=== PATIENT | female | born 1965 | race Caucasian/White ===

== ENCOUNTER → 2021-05-14 10:12 | Outpatient (CLI) | payer OTHER, SELFPAY ==
--- NOTE | 2021-05-14 | DI.MG.S_ITS ---
BILATERAL DIGITAL SCREENING MAMMOGRAM 3D/2D WITH CAD: 05/14/2021 CLINICAL: Routine screening. Family history of breast cancer. 12/07/2010 were available for comparison. There are scattered fibroglandular elements in both breasts. Current study was also evaluated with a Computer Aided Detection (CAD) system. No significant masses, calcifications, or other findings are seen in either breast. IMPRESSION: NEGATIVE There is no mammographic evidence of malignancy. A 1 year screening mammogram is recommended. This exam was interpreted at Station ID: [id number]. NOTE: For mammograms, a report in lay terms will be sent to the patient. Approximately 15% of breast malignancies will not be visualized mammographically. In the management of a palpable breast mass, a negative mammogram must not discourage biopsy of a clinically suspicious lesion. Electronically Signed By: Mukesh Sheppard acr/:05/14/2021 10:55:49 letter sent: Normal Exam ACR BI-RADS Category 1: Negative 3341F
== END ==
PROVIDERS: PCP Internal Medicine; Referring Provider Internal Medicine; Visit Provider Internal Medicine
DX: Z12.31 Encounter for screening mammogram for malignant neoplasm of breast (principal); Z80.3 Family history of malignant neoplasm of breast
CPT/HCPCS: 77063; 77067

== ENCOUNTER → 2021-11-23 16:22 | Outpatient (CLI) | payer OTHER, SELFPAY ==
[2021-11-23 17:31] LABS: COVID19 -Nasal RAPID Negative (Negative)
== END ==
PROVIDERS: PCP Internal Medicine; Visit Provider Obstetrics & Gynecology
DX: Z01.812 Encounter for preprocedural laboratory examination (principal); Z20.822 Contact with and (suspected) exposure to COVID-19
CPT/HCPCS: 87635

== ENCOUNTER 2021-11-26 08:13 | Inpatient (IN) | payer OTHER, SELFPAY ==
[2021-11-20 08:36] VITALS: BMI 28.5
[2021-11-26] VITALS (11 sets, daily range): BP systolic 112–127; BP diastolic 59–84; PULSE 68–85; RESP 14–18; TEMP 36.1–36.9; O2SAT 95–100; BMI 28.5
--- NOTE | 2021-11-26 | PATH_ITS ---
[facility] Accession Number: [id number] . 01 Material submitted: . uterus - UTERUS, UTERINE FIBROID, TUBES AND OVARIES . 02 Diagnosis: Uterus, Uterine Fibroid, Bilateral Fallopian Tubes and Ovaries, Supracervical Hysterectomy with Bilatreal Salpingo-oophorectomy: Multiple benign leiomyomata, up to 10 cm in greatest dimension. Inactive endometrium with no diagnostic abnormality. Left fimbraited fallopian tube with focal endometriosis and simple benign paratubal cysts. Right fimbriated fallopian tube with no diagnostic abnormality. Bilateral ovaries with cystic follicles and involuting corpus luteum cysts. No evidence of malignancy. [facility] 11/30/2021 1221 Local . 02 Electronically signed: . Rajan Rawls MD, PhD, Pathologist NPI- [id number] . 01 Gross description: . Received in formalin and labeled with the patient's name and designated uterus, uterine fibroid, tubes and ovaries is a distorted uterus with attached bilateral adnexa and one detached nodule. The uterus and nodule aggregate to 693 grams. The uterus is markedly distorted, 6.5 cm cornu to cornu, 7.5 cm fundus to cervical stump, and 10.5 cm anterior to posterior. The cervix is absent; the anterior cervical stump is inked blue and the posterior is inked black. The serosa is obrien-taylor and focally disrupted with an 8.5 cm ragged defect on the posterior aspect (likely corresponding with nodule site). The endometrium is pink-red and hemorrhagic, up to 0.2 cm thick. The myometrium is pink-taylor and moderately focally trabeculated, with at least six, 0.6 - 1.3 cm circumscribe intramural nodules with a taylor, whorled nodular cut surface; no discrete hemorrhage, necrosis or calcifications are identified. The myometrium is 2.2 cm thick anteriorly and 6.0 cm thick posteriorly, markedly disrupted and ragged posteriorly underlying the serosal defect. The detached nodule is 10.0 x 8.0 x 7.5 cm, with a ragged outer surface, sectioned to reveal a yellow-taylor, whorled, focally softened cut surface. No discrete areas of hemorrhage or calcifications are identified. The right fallopian tube is 5.5 cm long x 0.6 cm in diameter with a obrien-taylor outer surface and detached opened fimbria. The right ovary is 4.2 x 1.8 x 0.7 cm, with a yellow-taylor, focally hemorrhagic, nodular outer surface, sectioned to reveal a mottled pink-taylor cut surface with multiple mehta-rimmed cysts up to 0.5 cm. No additional lesions are identified. The left fallopian tube is 5.0 cm long x 0.6 cm in diameter with a obrien-taylor outer surface and attached opened fimbria. The left ovary is 4.0 x 2.0 x 0.7 cm, with a yellow-taylor, nodular outer surface, sectioned to reveal a mottled pink-taylor cut surface with multiple mehta-rimmed cysts up to 0.4 cm. No other lesions are identified. Croze Cutter sections are submitted as follows: . A1: Perpendicular sections of cervical resection site. A2: Anterior endomyometrium. A3: Posterior endomyometrium, including defect. A4: Croze Cutter intramural nodules. A5-A7: Croze Cutter detached softened nodule. A8: Croze Cutter right adnexa, including entire bisected fimbria. A9: Croze Cutter left adnexa, including entire bisected fimbria. (GUDELIA:[id number]) /[facility] 11/29/2021 [facility]6 Local . 02 Pathologist provided ICD-10: D25.9, N92.0, N80.2 . 02 CPT . 550170 Specimen Comment: A courtesy copy of this report has been sent to [phone] Specimen Comment: [id number] Performed at: 01 [facility] [address] [address], [place], [place] [id number] MD Yuval Luna MD Phone: [phone] Performed at: [address] [place] [address] [place] [id number] MD Margaux Garza MD Phone: [phone]
[2021-11-26] MEDS: ACETAMINOPHEN 325 MG TABLET 975 MG PO (08:38)
[2021-11-26] MEDS: LACTATED RINGERS 1,000 ML 100 ML IV ×3 (08:38→21:38)
[2021-11-26] MEDS: GABAPENTIN 300 MG CAPSULE PO (08:39)
[2021-11-26] MEDS: SCOPOLAMINE 1 PATCH TOP (08:40)
--- NOTE | 2021-11-26 09:38 | PM.PREOP ---
Pre-operative Note COVID-19 COVID-19 status: Negative Result date/Date tested (Pos, Neg/Pending): 11/23/21 Criteria for continued procedure: Delay expected to result in less-positive ultimate med/surg outcome and Non-surgical alternatives not available or appropriate per current SOC Interval Note History & Physical reviewed/Exam performed by Physician: Yes Changes to H&P: No H&P completed within 30 days and has changed as indicated here:: 11/20/21
[2021-11-26] MEDS: CEFAZOLIN 2 GM/20 ML SYRINGE IV (09:49)
--- NOTE | 2021-11-26 10:06 | SUR.OPER ---
Supine on padded OR bed, head on pillow, arms secured on padded arm boards at <90 degrees abduction, legs uncrossed, safety belt at thigh, tape over blanket over lower legs.
[2021-11-26] MEDS: SODIUM CHLORIDE 0.9% 30 ML, VASOPRESSIN 20 UNIT INJ (10:12)
[2021-11-26] MEDS: OXYCODONE IR 5 MG TABLET PO ×4 (11:41→23:59)
[2021-11-26] MEDS: ONDANSETRON 4 MG/2 ML INJ IV (11:42)
--- NOTE | 2021-11-26 11:53 | SUR.PHASEI ---
Report called to Lesa HOUSTON and opportunity for questions given. Pt updated on plan of care and transfer. Pt going to rm 214.
--- NOTE | 2021-11-26 12:13 | PC.NURSE ---
Postop Note Patient arrived to room 214 from PACU. Alert and oriented x3, sipping water and eating cheese stick on arrival. Denies nausea. Reports 6/10 to abdomen, received oxycodone in PACU and declines need for additional pain medication at this time. SpO2 97% RA. Dressing to lower abdomen C/D/I. Oriented to room and to bed/tv/call light controls. Call light within reach.
[2021-11-26] MEDS: LACTATED RINGERS 1,000 ML 120 ML IV (12:24)
--- NOTE | 2021-11-26 13:25 | P.OP_ITS ---
Operative Date/Time/Diagnoses Date of procedure: 11/26/21 Time of procedure: 11:10 Pre-op diagnosis: Enlarged fibroid uterus Menorrhagia Post-op diagnosis: same Procedure & Clinicians Procedure: Procedures Operation Date: 11/26/21 09:45 Actual Procedure Side Surgeon p Abdominal Supracervical Hysterectomy, removal of tubes, removal of ovaries Loraine Calvillo MD Indications: Menorrhagia Enlarged fibroid uterus Surgeon: Loraine Calvillo [employer] Admin: Leeanna Noe Anesthesia Type: General Operative Notes Findings: 20 week size fibroid uterus Normal tubes and ovaries Closure Type: primary Specimen(s): left tube & ovary, right tube & ovary and uterus Applied: catheter (To continuous drainage) Estimated blood loss (mL): 100 Blood products transfused: none Procedure in detail: The patient was taken to the operating room where she was placed in the dorsal supine position. After adequate general endotracheal anesthesia was achieved, she was prepped and draped in the usual sterile fashion. A time-out was performed. A midline incision was made from 2 cm below the umbilicus to the pubic symphysis and carried through to the underlying layer of fascia. The fascia was nicked in the midline. This incision was extended superiorly and inferiorly. The rectus muscles were in the midline. The peritoneum was grasped between 2 hemostats, and entered sharply with the Metzenbaum scissors. This incision was extended superiorly and inferiorly with good visualization of the bowel and bladder. The Evan self retaining retractor was placed into the incision. The bowel was packed away with moist lap sponges. The uterus was exteriorized. Using a solution of 20 units of Pitressin in 30 cc of saline, 10 cc were injected subserosally. An incision was made with the Bovie and carried down to the capsule of the fibroid. The fibroid was grasped with a single-tooth tenaculum. A large 15 cm fibroid was removed using blunt dissection and the Bovie for cautery. Once the fibroid was removed the 4 tooth tenaculum was used to close the defect in the uterus. The round ligament on the right side was doubly clamped, transected, and suture ligated with 0 Vicryl. This were tagged with hemostat. The infundibulopelvic ligament on the right side was doubly clamped, transected, free tied with 0 Vicryl and then suture ligated with 0 Vicryl. Hemostasis was achieved. The broad ligament was entered anteriorly and the bladder flap created using the Metzenbaum scissors. The uterine arteries on the right side were clamped, transected, and suture ligated with 0 Vicryl. All of this was repeated on the patient's left side. Using the Bovie the uterus was amputated from the cervix. The cervical canal was cauterized with the Bovie. The cervix was closed with 4 simple interrupted sutures with 0 Vicryl. Hemostasis was achieved. The pelvis was copiously irrigated with warm normal saline. There was no bleeding noted. The Evan was removed from the abdomen. The lap sponges were removed from the abdomen. The peritoneum was closed with 2 0 Vicryl in a running fashion. The fascia was reapproximated with 0 Vicryl in a running fashion. Subcutaneous layer was irrigated with warm normal saline. Seven simple interrupted sutures with 3-0 Vicryl were placed to reapproximate subcutaneous layer. The skin was closed with 4 0 Monocryl in a subcuticular fashion. Steri-Strips and an Aquacel dressing were placed. Sponge, lap, and instrument counts were correct x2. The patient tolerated the procedure well, and was taken to PACU in stable condition. Complications: none Post-operative Condition: stable Disposition: PACU Plan for aftercare: To acute care after recovery
[2021-11-26] MEDS: KETOROLAC 30 MG/ML VIAL IV (13:51)
[2021-11-26] MEDS: ESTRADIOL 1 EACH TOP (15:02)
[2021-11-26] MEDS: ACETAMINOPHEN 325 MG TABLET 650 MG PO (15:02)
[2021-11-26] MEDS: MORPHINE 2 MG/ML INJ 1 MG IV ×2 (16:08→18:08)
[2021-11-26] MEDS: DOCUSATE 100 MG CAPSULE 200 MG PO (20:12)
[2021-11-27 03:00] VITALS: BP 119/69; PULSE 70; RESP 17; TEMP 36.8; O2SAT 96
[2021-11-27] MEDS: OXYCODONE IR 5 MG TABLET PO (04:06)
[2021-11-27 04:49] LABS: Add Manual Diff / Slide Review NO; Basophils Absolute Auto 100 /uL (0-100); Basophils Percent Auto 0.6 % (0-2); Eosinophils Absolute Auto 0 /uL (0-450); Eosinophils Percent Auto 0.3 % (2-4); Hematocrit 36.5 % (36-46); Hemoglobin 12.2 g/dL (12.0-16.0); Lymphocytes Absolute Auto 2400 /uL (1100-4500); Mean Corpuscular HGB Conc 33.5 % (30-36); Mean Corpuscular Hemoglobin 31.4 PG (26-34); Mean Corpuscular Volume 93.7 fL (80-100); Monocytes Absolute Auto 1100 /uL (0-900); Monocytes Percent Auto 10.9 % (3-14); Neutrophils Absolute Auto 6700 /uL (1500-7000); Neutrophils Percent Auto 65.2 % (50-75); Platelet Count 243 X10^3/uL (150-400); White Blood Cell Count 10.4 X10^3/uL (4.5-11.0)
[2021-11-27] MEDS: ACETAMINOPHEN 325 MG TABLET 650 MG PO ×3 (05:56→11:18)
[2021-11-27] MEDS: IBUPROFEN 600 MG TABLET PO ×2 (05:57→11:18)
[2021-11-27] MEDS: DOCUSATE 100 MG CAPSULE 200 MG PO (07:51)
[2021-11-27] MEDS: KETOROLAC 30 MG/ML VIAL IV (07:52)
[2021-11-27 08:38] VITALS: BP 110/69; PULSE 65; RESP 18; O2SAT 97
--- NOTE | 2021-11-27 11:14 | PC.NURSE ---
Pt has voided since mitchell was removed. Bladder scan performed with 55cc result.
[2021-11-27 11:40] VITALS: BP 122/71; PULSE 65; RESP 18; O2SAT 97
--- NOTE | 2021-11-27 14:00 | PC.NURSE ---
Pt is dressed and ready for discharge home with Spouse. IV has been removed. [facility] Went over d/c instructions with Pt and Spouse-discussed d/c meds, time of last dose, reviewed stroke education, reminded Pt no driving while on narcotics, encouraged Pt to drink plenty of fluids to prevent constipation or dehydration, no lifting greater than a milk carton, s/s of infection and follow up information. Pt and Spouse denied further questions and Pt was taken out via w/c by RN to POV with Spouse and all belongings.
--- NOTE | 2021-11-28 07:05 | PM.DS.1 ---
History of Present Illness History of Present Illness Date Patient Seen: 11/28/21 Time Patient Seen: 13:00 Chief complaint: Hysterectomy Narrative: Patient is a 55-year-old postop day # 1 status post open supracervical hysterectomy with bilateral salpingo-oophorectomy. Patient is doing very well. She is ambulating without assistance. She has voided without the catheter. Her pain is well controlled. No nausea or vomiting. She is tolerating a diet. She desires to go home. Discharge Providers Provider Date of admission: 11/26/21 08:13 Discharge Date: 11/27/21 Primary care physician: Cayla Gamble MD Discharge provider: Loraine Calvillo MD Summary Hospital Course Discharge Diagnosis: Enlarged fibroid uterus Menorrhagia Status post abdominal supracervical hysterectomy/BSO Hospital Course: Patient is a 55-year-old who presented on November 26, 2021 for a scheduled abdominal supracervical hysterectomy for a 20 week size fibroid uterus. She underwent this procedure with bilateral salpingo-oophorectomy without complication. On postop day # 1 her catheter was removed and she was able to void. No nausea or vomiting. On the night of surgery there were some pain management issues which resolved by postop day # 1. By mid day postop day # 1 patient desire to go home. She was ambulating without assistance. She was tolerating a diet. She was passing flatus. Status at Discharge Cognitive/behavioral status at discharge: oriented Functional status at discharge: independent ambulation Overall status at discharge: patient is progressing back to baseline Time Spent with Patient Time spent: Less than 30 minutes Exam Vital Signs (past 8 hours): Oxygen Delivery Method Room Air Oxygen Flow Rate 0 Narrative Exam Narrative: Generally: Patient is sitting up in bed, no acute distress Lungs: Clear to auscultation bilaterally Cardiovascular: Regular rate and rhythm Abdomen: Soft and flat. Incision: Clean dry and intact in the midline with an Aquacel dressing. Two small areas less than a dime of old blood on the dressing. Extremities: Negative Homans, no edema Objective Labs Result Diagrams: 11/27/21 04:38 [facility] Medical History Cervical dysplasia Hypotension Miscarriage Surgical History S/P wisdom tooth extraction Social History household members: spouse Smoking Status: Former smoker alcohol intake: current Discharge Plan Discharge Plan Patient Disposition: Home Provider Discharge Comment: Call with fever, chills, redness or drainage around the incision, or bleeding vaginally more than spotting to light. Tylenol 650mg every 6 hours as needed Ibuprofen 600mg every 6 hours as needed Oxycodone as needed Stool softner as needed Discharge orders & Medications Prescriptions: New oxycodone 10 mg tablet 10 mg PO Q4H PRN (Reason: pain) Qty: 20 0RF Rx Instructions: 1/2 to 1 every 4 hours as needed for pain Continued estradiol [Micheline] 0.0375 mg/24 hr patch semiweekly 1 patch transdermal 2XW Qty: 8 11RF Label Comments: starts preop Rx Instructions: apply 1 patch for 3 days alternating with 1 patch for 4 days each week for 3 wks per 4-wk cycle Follow up/Referrals: Loraine Calvillo MD [Physician] - 12/03/21 3:45 pm (Friday, December 03 @ 3:45 w/dr calvillo for aquacel removal ) Diet/Activity/Treatments Diet: Regular Activity: Nothing in the vagina No heavy lifting, nothing more than a gallon of milk Skin/Wound/Dressing Care Report to your healthcare provider any signs of infection, such as:: chills, fever, increased pain, unusual drainage and unusual redness Dressing: Do not remove Visit Report/Discharge Packet Instructions: DI for Hysterectomy, DI for Prescription Opioid Use, Oxycodone Stand Alone Forms: Surgery Discharge Discharge Data Primary Care Provider: Cayla Gamble
== END 2021-11-27 14:02 | disposition home or self-care (01) | DRG 743 ==
PROVIDERS: Admitting Provider Obstetrics & Gynecology; PCP Internal Medicine; Referring Provider Obstetrics & Gynecology; Visit Provider Obstetrics & Gynecology
PROC: 0UT90ZZ Resection of Uterus, Open Approach (ICD-10-PCS; CPT 58150; principal; 2021-11-26 09:45)
DX: D25.1 Intramural leiomyoma of uterus (principal); N92.0 Excessive and frequent menstruation with regular cycle; N87.9 Dysplasia of cervix uteri, unspecified; Z87.891 Personal history of nicotine dependence; Z20.822 Contact with and (suspected) exposure to COVID-19
CPT/HCPCS: 36415; 58180; 81025; 85025; J0330; J0690; J1100; J1170; J1885; J2250; J2270; J2405; J2704; J3010

== ENCOUNTER → 2023-05-22 | Outpatient (CLI) | payer OTHER, SELFPAY ==
[2021-11-26 12:18] VITALS: BMI 28.5
== END ==
PROVIDERS: PCP Physician Assistant
DX: Z00.00 Encounter for general adult medical examination without abnormal findings (principal)

== ENCOUNTER → 2023-05-27 15:13 | Outpatient (CLI) | payer OTHER, SELFPAY ==
[2021-11-26 12:18] VITALS: BMI 28.5
--- NOTE | 2023-05-27 15:15 | DI.MG.S_ITS ---
BILATERAL DIGITAL SCREENING MAMMOGRAM 3D/2D WITH CAD: 05/27/2023 CLINICAL: Routine screening. Family history of breast cancer. Comparison is made to exam dated: 05/14/2021 mammogram - [facility]. Both breasts are heterogeneously dense, which may obscure small masses (category c / 51-75% glandular tissue). Current study was also evaluated with a Computer Aided Detection (CAD) system. There is a possible new irregular architectural distortion in the right breast at 11 o'clock posterior depth. No other significant masses, calcifications, or other findings are seen in either breast. IMPRESSION: INCOMPLETE: NEEDS ADDITIONAL IMAGING EVALUATION The possible new irregular architectural distortion in the right breast is indeterminate. Additional views with possible ultrasound are recommended. Based on the Tyrer Cuzick model (a risk assessment model) the patient's lifetime risk is 14.5% and her 10 year risk is 4.5%. According to the ACR, ACS, and NCCN guidelines, an annual breast MRI exam along with mammogram is recommended if the patient's lifetime risk is 20% or greater. This exam was interpreted at Station ID: [id number]. NOTE: For mammograms, a report in lay terms will be sent to the patient. Approximately 15% of breast malignancies will not be visualized mammographically. In the management of a palpable breast mass, a negative mammogram must not discourage biopsy of a clinically suspicious lesion. Electronically Signed By: Calos Bello M.D. aty/:05/28/2023 13:24:25 letter sent: Additional Imaging Needed ACR BI-RADS Category 0: Incomplete 3340F
== END ==
PROVIDERS: PCP Physician Assistant; Referring Provider Physician Assistant; Visit Provider Physician Assistant
DX: Z12.31 Encounter for screening mammogram for malignant neoplasm of breast (principal); Z80.3 Family history of malignant neoplasm of breast
CPT/HCPCS: 77063; 77067

== ENCOUNTER → 2023-06-19 13:30 | Outpatient (CLI) | payer OTHER, SELFPAY ==
[2021-11-26 12:18] VITALS: BMI 28.5
--- NOTE | 2023-06-19 | DI.MG.S_ITS ---
UNILATERAL RIGHT DIGITAL DIAGNOSTIC MAMMOGRAM 3D/2D WITH ADDITIONAL VIEWS: 06/19/2023 CLINICAL: Additional evaluation requested from prior study. Comparison is made to exams dated: 05/27/2023 mammogram and 05/14/2021 mammogram - [facility]. The right breast is heterogeneously dense, which may obscure small masses (category c / 51-75% glandular tissue). There is a 1.5 cm irregular equal density mass with a spiculated margin in the right breast at 10 o'clock posterior depth. This is seen in additional views. No other significant masses or calcifications are seen in the breast. IMPRESSION: INCOMPLETE: NEEDS ADDITIONAL IMAGING EVALUATION The 1.5 cm irregular equal density mass in the right breast is indeterminate. An ultrasound is recommended. Based on the Tyrer Cuzick model (a risk assessment model) the patient's lifetime risk is 14.5% and her 10 year risk is 4.5%. According to the ACR, ACS, and NCCN guidelines, an annual breast MRI exam along with mammogram is recommended if the patient's lifetime risk is 20% or greater. This exam was interpreted at Station ID: [id number]. NOTE: For mammograms, a report in lay terms will be sent to the patient. Approximately 15% of breast malignancies will not be visualized mammographically. In the management of a palpable breast mass, a negative mammogram must not discourage biopsy of a clinically suspicious lesion. Electronically Signed By: Christian richardson/hannah:06/19/2023 15:56:40 ACR BI-RADS Category 0: Incomplete 3340F
--- NOTE | 2023-06-19 | DI.US.S_ITS ---
LIMITED ULTRASOUND OF RIGHT BREAST AND AXILLA: 06/19/2023 CLINICAL: Additional evaluation requested from prior study. Comparison is made to exams dated: 06/19/2023 mammogram, 05/27/2023 mammogram, and 05/14/2021 mammogram - [facility]. Color flow and real-time ultrasound of the right breast 10-11 o'clock, and axilla regions were performed. Rojas scale images of the real-time examination were reviewed. There is a 1.4 cm x 1.5 cm x 1.3 cm irregular mass with a spiculated margin in the right breast at 10 o'clock posterior depth 14 cm from the nipple. This irregular mass is hypoechoic with posterior acoustic shadowing. This correlates with mammography findings. Color flow imaging demonstrates that there is vascularity present. No significant abnormalities were seen sonographically in the right axilla. IMPRESSION: HIGHLY SUGGESTIVE OF MALIGNANCY The 1.4 cm x 1.5 cm x 1.3 cm irregular mass in the right breast is highly suggestive of malignancy. An ultrasound guided biopsy is recommended. The findings and recommendations were discussed with the patient by telephone at the time of the exam. No significant abnormalities were seen sonographically in the right axilla. This exam was interpreted at Station ID: [id number]. Electronically Signed By: Christian Goff M.D. ar/:06/19/2023 16:02:14 Ultrasound BI-RADS: 5 Highly suggestive of malignancy
== END ==
PROVIDERS: PCP Physician Assistant; Referring Provider Physician Assistant; Visit Provider Physician Assistant
DX: R92.8 Other abnormal and inconclusive findings on diagnostic imaging of breast (principal); N63.11 Unspecified lump in the right breast, upper outer quadrant
CPT/HCPCS: 76642; 77065; G0279

== ENCOUNTER → 2023-07-01 08:49 | Outpatient (CLI) | payer OTHER, SELFPAY ==
[2021-11-26 12:18] VITALS: BMI 28.5
--- NOTE | 2023-07-01 | PATH_ITS ---
[facility] Accession Number: [id number] No. of containers..01 Tissue . 01 Material submitted: . breast - RIGHT BREAST 10:00 14cm FN . 01 Diagnosis: A. 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 Nuclear pleomorphism: Intermediate. (2/3) 2. Mitotic rate: Low. (1/3) 3. Tubular differentiation: Little. (3/3) 4. Size of invasive carcinoma: Present on multiple cores, single largest dimension of 5 mm in this sample. 5. Ductal carcinoma in situ: Absent. 6. Calcifications: Absent. 7. Lymphatic invasion: Absent. 8. Prognostic markers: - Estrogen receptor status: Positive (more than 95% tumor cells staining, staining intensity strong). - Progesterone receptor status: Positive (more than 95% tumor cells staining, staining intensity strong). - HER2: Equivocal for protein overexpression by immunohistochemistry (2+) by IHC; HER2 gene amplification by FISH studies are pending, and the results will be reported in an addendum. [facility] 07/07/2023 1335 Local . 01 Comment: An attempt to communicate this finding to Ness Delgado on 07/07/2023 was not successful. . 01 Electronically signed: . Charlotte Worthy MD, Pathologist NPI- [id number] . 01 Gross description: . Received one formalin-filled container, labeled with the patient's name and right breast 10 o'clock 14 cm FN. Received on Telfa paper are multiple yellow-taylor, cylindrical-shaped portions of tissue which range in size from 0.1 x 0.1 x 0.1 cm to 0.8 x 0.1 x 0.1 cm. All fragments are totally submitted in one cassette. Possible collection date and time per requisition: 07/01/2023 at 10:01. Total fixation time: Approximately 17 hours. (DC:[id number]) /[facility] 07/02/2023 0538 Local . 01 Microscopic: . A panel of immunostains is performed on block A1, in order to evaluate the carcinoma for lobular phenotype, with appropriately staining external controls. . The invasive carcinoma in block A1 demonstrates the following immunoprofile: . Beta-catenin: Membranous immunoreactivity (in support of ductal phenotype). E-cadherin: Membranous immunoreactivity (in support of ductal phenotype). . Predictive marker immunohistochemical studies are performed on block A1 with the invasive carcinoma showing the following results: . Estrogen receptor (SP1): Positive (more than 95% tumor cells staining, staining intensity strong). Progesterone receptor (1E2): Positive (more than 95% tumor cells staining, staining intensity strong). Her2 (4B5): Equivocal for protein overexpression (2+) by IHC; HER2 gene amplification by FISH studies are pending, and the results will be reported in an addendum. . Cold ischemic time is <5 minutes. The scoring criteria for breast biomarkers by immunohistochemistry is based on the ASCO/CAP guidelines (Jelly AC et al, J Clin Oncol: 2017Mar 03;36(20):5734-9394 and Silas ME et al, Arch Pathol Lab Med: 2009;134(6):907-22). Deparaffinized sections of formalin fixed tissue (along with appropriate positive controls) are incubated with the above antibody(s). Using the automated [place] stainer, tissue is incubated with the designated antibody which is then localized by a non-biotin, dual polymer detection system. The external controls are reviewed for appropriate reactivity and found to be adequate. Results on the target cell population are indicated above. These tests have not been validated on decalcified tissue. This test was developed and its performance characteristics determined by [employer]. It has not been cleared or approved by the U.S. Food and Drug Administration. The FDA has determined that such clearance or approval is not necessary. This test is used for clinical purposes. It should not be regarded as investigational or for research. . 01 Pathologist provided ICD-10: C50.921 . 01 CPT . 607722, L85167, L99823, 502978, 985853, 332480 Performed at: [facility] [address] [place] [address], [place], [place] [id number] MD Yuval Luna MD Phone: [phone]
--- NOTE | 2023-07-01 | DI.US.S_ITS ---
ULTRASOUND GUIDED BIOPSY RIGHT BREAST WITH MARKING DEVICE INSERTED AND POST DIGITAL MAMMOGRAPHIC IMAGIN07/01/2023 CLINICAL: Right breast mass. PATIENT CONSENT: Risks (minor bleeding, infection, vasovagal reaction and repeat procedure), benefits and alternatives were explained to the patient and written informed consent was obtained. Correlation is made to exams dated: 07/01/2023 mammogram, 06/19/2023 ultrasound, 06/19/2023 mammogram, 05/27/2023 mammogram, and 05/14/2021 mammogram - [facility]. An ultrasound guided biopsy using real-time ultrasound was performed for the 1.5 cm x 1.4 cm x 1.3 cm irregular shaped mass located in the right breast at 10 o'clock posterior depth 14 cm from the nipple. This was described on the previous ultrasound report. The skin was prepped in the usual manner. Local anesthetic was administered to the access site. A skin elvis was made in the breast. The abnormality was approached from the lateral aspect. A 16 gauge biopsy needle was placed adjacent to the abnormality under ultrasound guidance. Once the needle was documented to be in the correct location, three cores were obtained using Achieve. A vision clip was inserted into the biopsy cavity. A skin adhesive and a sterile dressing were applied to the access site. Post procedure digital mammographic imaging demonstrates the location device at the targeted area. The specimens were sent to the laboratory for pathological analysis. IMPRESSION: ULTRASOUND GUIDED BIOPSY MALIGNANT Ultrasound guided biopsy of the 1.5 cm x 1.4 cm x 1.3 cm mass in the right breast at 10 o'clock posterior depth 14 cm from the nipple was successful. Pathology indicates malignant invasive ductal carcinoma (ID). Pathology results are concordant with imaging findings. A surgical/oncologic consultation is recommended. This procedure was preformed by Dr. Jose Padron MD. Dr. Morales Gallagher assisting in placing report into tracking software. This exam was interpreted at Station ID: [id number]. Jose Bello M.D. ,at/:07/11/2023 18:49:50 Entry: - 07/14/2023 08:28:05
--- NOTE | 2023-07-01 | DI.MG.S_ITS ---
UNILATERAL RIGHT DIGITAL DIAGNOSTIC MAMMOGRAM 3D/2D POST-EXCISIONAL BIOPSY: 07/01/2023 CLINICAL: Post clip. Comparison is made to exams dated: 06/19/2023 mammogram, 05/27/2023 mammogram, 05/14/2021 mammogram, 06/19/2023 ultrasound, and 07/01/2023 ultrasound biopsy - [facility]. The right breast is heterogeneously dense, which may obscure small masses (category c / 51-75% glandular tissue). There is a marker clip in the appropriate position in the right breast at 11 o'clock posterior depth is at the biopsy site. IMPRESSION: POST PROCEDURE MAMMOGRAM FOR MARKER PLACEMENT There was a successful marker clip placement in the right breast posterior depth. This exam was interpreted at Station ID: [id number]. Electronically Signed By: Morales Gallagher M.D. slc/:07/02/2023 08:37:30 ACR BI-RADS Category Post-procedure mammogram for marker placement
== END ==
PROVIDERS: PCP Physician Assistant; Referring Provider Physician Assistant; Visit Provider Physician Assistant
DX: C50.411 Malignant neoplasm of upper-outer quadrant of right female breast (principal); Z17.0 Estrogen receptor positive status [ER+]
CPT/HCPCS: 19083; 77065

== ENCOUNTER → 2024-08-27 10:44 | Outpatient (CLI) | payer SELFPAY ==
[2021-11-26 12:18] VITALS: BMI 28.5
== END ==
LOC: RAD 10:46
PROVIDERS: PCP Physician Assistant; Referring Provider Physician Assistant; Visit Provider Physician Assistant
DX: Z08 Encounter for follow-up examination after completed treatment for malignant neoplasm (principal)

== ENCOUNTER → 2024-09-15 15:14 | Outpatient (CLI) | payer BC, SELFPAY ==
[2021-11-26 12:18] VITALS: BMI 28.5
--- NOTE | 2024-09-15 15:14 | DI.RAD.S_ITS ---
PROCEDURE: XR DEXA AXIAL SKELETON INDICATIONS: Malignant neoplasm of unspecified site of right fe COMPARISON: None. FINDINGS: Lumbar Spine: Bone mineral density 1.121 g/cm2, T score 0.7. Left Femoral Neck: Bone mineral density 0.739 g/cm2, T score -1.0. Left Hip: Bone mineral density 0.890 g/cm2, T score -0.4. Fracture Risk Calculation (when applicable): FRAX score not reported due to T-score greater than or equal to -1.0. (T score greater or equal to -1.0 to: NORMAL) (T score from -1.1 to -2.4: OSTEOPENIA) (T score less than or equal to -2.5: OSTEOPOROSIS) IMPRESSION: By WHO criteria, patient has normal bone mineral density. Follow-up guidelines as follows: Osteoporosis: Consider a repeat DEXA and Vertebral Fracture Assessment (VFA) exam in 2 years or sooner if medically necessary, to reassess this patient's status. Osteopenia: Consider a repeat DEXA in 2-3 years to reassess this patient's status, or if there is a new clinical indication. Normal: Consider a repeat DEXA in 5 years or sooner, or if there is a new clinical indication. All treatment decisions require clinical judgment and consideration of individual patient factors, including patient preferences, comorbidities, previous drug use, risk factors not captured in the FRAX model (e.g., frailty, falls, vitamin D deficiency, increased bone turnover, interval significant decline in bone density ) and possible under- or over-estimation of fracture risk by FRAX. In addition, the NOF Guide recommends that FDA-approved medical therapies be considered in postmenopausal women and men age >= 50 years with a: * Hip or vertebral (clinical or morphometric) fracture * T-score of <=-2.5 at the spine or hip * Ten-year fracture probability by FRAX of >= 3% for hip fracture or >=20% for major osteoporotic fracture. Approved by: Christian Goff M.D. on 09/16/2024 at 21:57
== END ==
LOC: RAD 15:14
PROVIDERS: PCP Physician Assistant; Referring Provider Physician Assistant; Visit Provider Physician Assistant
DX: C50.911 Malignant neoplasm of unspecified site of right female breast (principal)
CPT/HCPCS: 77080